=== PATIENT | female | born 1990 | race Caucasian/White ===

== ENCOUNTER → 2020-08-19 | Outpatient (CLI) | payer BC, OTHER | LOC: OPSV 08-12 16:00 | DX: L50.1 Idiopathic urticaria (principal) | CPT/HCPCS: 96372; J2357 ==

== ENCOUNTER → 2020-10-02 | Outpatient (CLI) | payer BC, OTHER ==
[~2020-10-02] VITALS: Ht 162.6 cm; Wt 120.2 kg
== END ==
LOC: OPSV 09-16 15:00
DX: L50.1 Idiopathic urticaria (principal)
CPT/HCPCS: 96372; J2357

== ENCOUNTER → 2020-10-30 | Outpatient (CLI) | payer BC, OTHER ==
[~2020-10-30] VITALS: Ht 162.6 cm; Wt 120.2 kg
== END ==
LOC: OPSV 14:12
DX: L50.1 Idiopathic urticaria (principal)
CPT/HCPCS: 96372; J2357

== ENCOUNTER → 2020-11-27 | Outpatient (CLI) | payer BC, OTHER ==
[~2020-11-27] VITALS: Ht 162.6 cm; Wt 120.2 kg
== END ==
LOC: OPSV 14:00
DX: L50.0 Allergic urticaria (principal)
CPT/HCPCS: 96372; J2357

== ENCOUNTER → 2020-12-25 | Outpatient (CLI) | payer BC, OTHER ==
[~2020-12-25] VITALS: Ht 162.6 cm; Wt 120.2 kg
== END ==
LOC: OPSV 11:00
DX: L50.1 Idiopathic urticaria (principal)
CPT/HCPCS: 96372; J2357

== ENCOUNTER → 2021-01-22 | Outpatient (CLI) | payer BC, OTHER ==
[~2021-01-22] VITALS: Ht 162.6 cm; Wt 120.2 kg
== END ==
LOC: OPSV 12:00
DX: L50.1 Idiopathic urticaria (principal)
CPT/HCPCS: 96372; J2357

== ENCOUNTER → 2021-02-19 | Outpatient (CLI) | payer BC, OTHER | LOC: OPSV 11:33 | DX: L50.1 Idiopathic urticaria (principal) | CPT/HCPCS: 96372; J2357 ==

== ENCOUNTER → 2021-03-19 | Outpatient (CLI) | payer BC ==
[~2021-03-19] VITALS: Ht 162.6 cm; Wt 111.1 kg
== END ==
LOC: OPSV 11:49
DX: L50.1 Idiopathic urticaria (principal)
CPT/HCPCS: 96372; J2357

== ENCOUNTER → 2021-04-25 | Outpatient (CLI) | payer BC ==
[~2021-04-25] VITALS: Ht 162.6 cm; Wt 120.2 kg
== END ==
LOC: OPSV 07:30
DX: L50.1 Idiopathic urticaria (principal)
CPT/HCPCS: 96372; J2357

== ENCOUNTER → 2021-05-23 | Outpatient (CLI) | payer BC ==
[~2021-05-23] VITALS: Ht 175.3 cm; Wt 111.1 kg
== END ==
LOC: OPSV 15:00
DX: L50.1 Idiopathic urticaria (principal)
CPT/HCPCS: 96372; J2357

== ENCOUNTER → 2021-06-20 | Outpatient (CLI) | payer BC ==
[~2021-06-20] VITALS: Ht 162.6 cm; Wt 111.1 kg
== END ==
LOC: OPSV 15:00
DX: L50.1 Idiopathic urticaria (principal)
CPT/HCPCS: 96372; J2357

== ENCOUNTER → 2021-07-16 | Outpatient (CLI) | payer BC ==
[~2021-07-16] VITALS: Ht 175.3 cm; Wt 120.2 kg
== END ==
LOC: OPSV 11:00
DX: L50.1 Idiopathic urticaria (principal)
CPT/HCPCS: 96372; J2357

== ENCOUNTER → 2021-08-12 | Outpatient (CLI) | payer BC ==
[~2021-08-12] VITALS: Ht 162.6 cm; Wt 111.1 kg
== END ==
LOC: OPSV 12:27
DX: L50.1 Idiopathic urticaria (principal)
CPT/HCPCS: 96372; J2357

== ENCOUNTER → 2021-09-09 | Outpatient (CLI) | payer BC ==
[~2021-09-09] VITALS: Ht 162.6 cm; Wt 120.2 kg
== END ==
LOC: OPSV 14:54
DX: L50.1 Idiopathic urticaria (principal)
CPT/HCPCS: 96372; J2357

== ENCOUNTER → 2021-10-09 | Outpatient (CLI) | payer BC, OTHER ==
[~2021-10-09] VITALS: Ht 175.3 cm; Wt 111.1 kg
== END ==
LOC: OPSV 09-10 08:00
DX: L50.1 Idiopathic urticaria (principal)
CPT/HCPCS: 96372; J2357

== ENCOUNTER → 2021-11-06 | Outpatient (CLI) | payer BC, OTHER ==
[~2021-11-06] VITALS: Ht 162.6 cm; Wt 111.1 kg
== END ==
LOC: OPSV 08:29
DX: J45.909 Unspecified asthma, uncomplicated (principal)
CPT/HCPCS: 96372; J2357

== ENCOUNTER → 2021-12-04 | Outpatient (CLI) | payer BC ==
[~2021-12-04] VITALS: Ht 175.3 cm; Wt 111.1 kg
== END ==
LOC: OPSV 08:22
DX: L50.1 Idiopathic urticaria (principal)
CPT/HCPCS: 96372; J2357

== ENCOUNTER → 2022-01-29 | Outpatient (CLI) | payer BC | LOC: OPSV 14:00 | DX: L50.1 Idiopathic urticaria (principal) | CPT/HCPCS: 96372; J2357 ==

== ENCOUNTER → 2022-02-26 | Outpatient (CLI) | payer BC ==
[~2022-02-26] VITALS: Ht 162.6 cm; Wt 120.2 kg
== END ==
LOC: OPSV 14:00
DX: L50.1 Idiopathic urticaria (principal)
CPT/HCPCS: 96372; J2357

== ENCOUNTER → 2022-03-25 | Outpatient (CLI) | payer BC | LOC: OPSV 12:00 | DX: L50.1 Idiopathic urticaria (principal) | CPT/HCPCS: 96372; J2357 ==

== ENCOUNTER → 2022-04-20 | Outpatient (CLI) | payer BC ==
[~2022-04-20] VITALS: Ht 175.3 cm; Wt 111.1 kg
== END ==
LOC: OPSV 15:00
DX: L50.1 Idiopathic urticaria (principal)
CPT/HCPCS: 96372; J2357

== ENCOUNTER → 2022-05-18 | Outpatient (CLI) | payer BC ==
[~2022-05-18] VITALS: Ht 162.6 cm; Wt 111.1 kg
== END ==
LOC: OPSV 15:00
DX: L50.1 Idiopathic urticaria (principal)
CPT/HCPCS: 96372; J2357